=== PATIENT | male | born 1945 | race Caucasian/White ===

== ENCOUNTER 2018-08-17 14:05 | Emergency (ER) | payer OTHER ==
[~2018-08-17] VITALS: Ht 170.2 cm; Wt 65.9 kg
[2018-08-17 14:13] VITALS: Ht 170.2 cm; Wt 65.9 kg
[2018-08-17] MEDS ORDERED: SOD CHLORIDE 0.9% 1,000 ML IV STA (16:40)
[2018-08-17] MEDS ORDERED: LOSA1TAB25 PO (16:53)
[2018-08-17] MEDS ORDERED: AMLO-147 PO (16:53)
[2018-08-17] MEDS ORDERED: METO-448 PO (16:53)
[2018-08-17] MEDS ORDERED: METF500T24 PO (16:54)
[2018-08-17] MEDS ORDERED: LOVA10TA63 PO (16:54)
[2018-08-17] MEDS ORDERED: HYDR-3671 PO (16:55)
[2018-08-17] MEDS ORDERED: SODIUM POLYSTYRENE 15 GM KIT (POWDER + SORBITOL) PO ONE (17:00)
--- NOTE | 2018-08-17 18:53 | ERD ---
ER Documentation Chief Complaint Chief Complaint SENT BY PMD FOR RECHECK KIDNEY FUNCTION TEST HPI Patient is a 73-year-old male who presents for high potassium. The patient had outpatient labs done and was found to have a potassium of 6.3. His doctor called him and told him to go to the emergency department for further evaluation . He has a history of diabetes and hypertension. He has had no treatment as of yet. He feels well and has no complaints. He says that he has been urinating normally. He has no history of renal failure or dialysis. ROS All systems reviewed and are negative except as per history of present illness. Medications Home Meds Reported Medications Hydralazine Hcl* (Hydralazine Hcl*) 25 Mg Tab, 25 MG PO BID, #60 TAB 08/17/18 Lovastatin* (Lovastatin*) 10 Mg Tablet, 10 MG PO HS, TAB 08/17/18 Metformin Hcl* (Metformin Hcl*) 500 Mg Tablet, 500 MG PO WITH BREAKFAST DINNE, #60 TAB 08/17/18 Metoprolol Tartrate* (Lopressor*) 25 Mg Tab, 25 MG PO DAILY, #60 TAB 08/17/18 Losartan-Hydrochlorothiazide (Losartan-HCTZ) 100-25 Mg Tab, 1 TAB PO DAILY, TAB 08/17/18 Amlodipine Besylate* (Amlodipine Besylate*) 10 Mg Tablet, 10 MG PO DAILY, #30 TAB 08/17/18 Allergies Allergies: Coded Allergies: No Known Allergy (Unverified , 08/17/18) PMhx/Soc History of Surgery: No Anesthesia Reaction: No Hx Neurological Disorder: No Hx Respiratory Disorders: No Hx Cardiac Disorders: Yes (HTN, HYPERLIPIDEMIA) Hx Psychiatric Problems: No Hx Miscellaneous Medical Probl: No Hx Alcohol Use: No Hx Substance Use: No Hx Tobacco Use: No Smoking Status: Never smoker FmHx Family History: diabetes Physical Exam Vitals Vital Signs Date Temp Pulse Resp B/P (MAP) Pulse Ox O2 O2 Flow FiO2 Time Delivery Rate 08/17/18 97.9 77 18 175/63 99 Room Air 18:20 (100) 08/17/18 97.9 67 18 207/95 97 14:13 (132) Physical Exam Const: No acute distress Head: Atraumatic Eyes: Normal Conjunctiva ENT: Normal External Ears, Nose and Mouth. Neck: Full range of motion. No meningismus. Resp: Clear to auscultation bilaterally Cardio: Regular rate and rhythm, no murmurs Abd: Soft, non tender, non distended. Normal bowel sounds Skin: No petechiae or rashes Back: No midline or flank tenderness Ext: No cyanosis, or edema Neur: Awake and alert Psych: Normal Mood and Affect Result Diagram: 08/17/18 1549 08/17/18 1549 Results 24 hrs Laboratory Tests Test 08/17/18 15:48 08/17/18 15:49 Bedside Glucose 145 mg/dL White Blood Count 6.1 10^3/ul Red Blood Count 3.55 10^6/ul Hemoglobin 11.0 g/dl Hematocrit 33.2 % Mean Corpuscular Volume 93.5 fl Mean Corpuscular Hemoglobin 31.0 pg Mean Corpuscular Hemoglobin Concent 33.1 g/dl Red Cell Distribution Width 14.2 % Platelet Count 166 10^3/UL Mean Platelet Volume 10.7 fl Immature Granulocytes % 0.500 % Neutrophils % 76.5 % Lymphocytes % 14.8 % Monocytes % 6.2 % Eosinophils % 1.3 % Basophils % 0.7 % Nucleated Red Blood Cells % 0.0 /100WBC Immature Granulocytes # 0.030 10^3/ul Neutrophils # 4.7 10^3/ul Lymphocytes # 0.9 10^3/ul Monocytes # 0.4 10^3/ul Eosinophils # 0.1 10^3/ul Basophils # 0.0 10^3/ul Nucleated Red Blood Cells # 0.0 10^3/ul Sodium Level 141 mmol/L Potassium Level 5.5 mmol/L Chloride Level 112 mmol/L Carbon Dioxide Level 20 mmol/L Anion Gap 9 Blood Urea Nitrogen 48 mg/dl Creatinine 1.20 mg/dl Est Glomerular Filtrat Rate mL/min mL/min Glucose Level 160 mg/dl Calcium Level 9.2 mg/dl Current Medications Medications Dose Sig/Genaro Start Time Status Last (Trade) Ordered Route PRN Stop Time Admin Dose Reason Admin Sodium 1,000 ml @ Q1H STAT 08/17/18 DC 08/17/18 Chloride 1,000 mls/hr IV 16:40 17:49 08/17/18 17:39 Sodium 30 gm ONCE ONCE 08/17/18 DC 08/17/18 Polystyrene PO 17:00 17:50 Sulfonate 08/17/18 17:01 (Kayexelate 15 Gm Kit (Powder+Sorbi sandra)) Procedures/MDM EKG read by me: Rate/Rhythm: Bradycardia with PVCs Intervals: Normal Impression: Sinus bradycardia Patient is a 73-year-old male who presents with hyperkalemia. Repeat potassium in the emergency department was 5.5 and his creatinine was normal at 1.2. However his BUN/creatinine ratio is greater than 20 and I believe this is likely related to acute dehydration. The patient was given 1 L of normal saline for fluid resuscitation in the emergency department. He was given Kayexalate as well to bring down the potassium. I do not believe he requires admission to the hospital or further work-up at this time. The patient will be discharged but will need close follow-up with his primary doctor within 1 to 2 days. He can return sooner for any worsening symptoms. Departure Diagnosis: Primary Impression: Dehydration Additional Impression: Hyperkalemia Condition: Fair Patient Instructions: Hyperkalemia, Dehydration (6Y-Adult) Referrals: Dr. Caden Sheffield Additional Instructions: Llame al doctor MAANA y rosalinda nikko CARYN PARA DENTRO DE 1-2 TRAORE.Dgale a la secretaria que nosotros le instruimos hacer esta caryn.Avise o llame si jones condicin se empeora antes de la caryn. Regresa aqui si peor o no mejor. MITCH GRESHAM MD Aug 17, 2018 18:53
[2018-08-17 19:17] VITALS: BP 165/79; PULSE 72; RESP 20
== END 2018-08-17 19:17 | disposition home or self-care (01) ==
LOC: E/R 14:05
DX: E87.5 Hyperkalemia (principal); E86.0 Dehydration; I10 Essential (primary) hypertension; Z79.84 Long term (current) use of oral hypoglycemic drugs
CPT/HCPCS: 80048; 82962; 85025; 93005; 99284; J7030